=== PATIENT | female | born 2000 | race Caucasian/White ===

== ENCOUNTER 2019-11-03 12:57 | Emergency (ER) | payer OTHER ==
[~2019-11-03] VITALS: Ht 154.9 cm; Wt 46.7 kg
[2019-11-03] MEDS ORDERED: LEVO-T25 MCG PO (13:17)
== END 2019-11-03 16:36 | disposition home or self-care (01) ==
LOC: ED 12:57
DX: O20.0 Threatened abortion (principal); Z3A.01 Less than 8 weeks gestation of pregnancy; Z79.899 Other long term (current) drug therapy
CPT/HCPCS: 76801; 76817; 81001; 84702; 85025; 86900; 86901; 87210; 87491; 87591; 96360; 99284-25; J7030

== ENCOUNTER 2020-05-22 07:22 | Inpatient (IN) | payer OTHER ==
--- NOTE | ~2020-05-22 | OR ---
[facility] [address] [facility] [place], [place] [address] Draft DATE OF OPERATION: 05/22/2020 SURGEON: Heather Saenz DO PREOPERATIVE DIAGNOSES: 1. Intrauterine at 35 weeks and four days' gestation. 2. Severe intrauterine growth restriction. 3. Non-reassuring heart tracing. 4. Placental abruption. 5. Premature rupture of membranes. POSTOPERATIVE DIAGNOSES: 1. Intrauterine at 35 weeks and four days' gestation. 2. Severe intrauterine growth restriction. 3. Non-reassuring heart tracing. 4. Placental abruption. 5. Premature rupture of membranes. PROCEDURES PERFORMED: Primary low transverse delivery. ANESTHESIA: Spinal. PERISHABLE FRUIT INSPECTOR: Danica Andrews M.D. ESTIMATED BLOOD LOSS: 500 mL. COMPLICATIONS: None. FINDINGS: Viable male weighing 3 pounds 7 ounces, born in the LUCY position with no nuchal cord. Thick meconium. Placenta demonstrates 20% to 25% abruption. Apgars 7 and 9. INDICATIONS: Ms. To is a pleasant 20-year-old, G3, P0-1-1-1 female, who presented to Labor and Delivery after complaining of rupture of membranes and scant vaginal bleeding this PATIENT NAME: LLOYD TO OPERATIVE REPORT DATE OF : 99 REPORT #: [id number] PHYSICIAN: HEATHER SAENZ DO PCP: [facility] REPORT IS CONFIDENTIAL AND NOT TO BE RELEASED WITHOUT AUTHORIZATION [facility] [address] [place], [place] [address] Draft morning. was complicated by severe IUGR and single umbilical artery. The patient had previously undergone a course of steroids on 05/08 through 05/09/2020. Upon presentation, spontaneous rupture of membranes was confirmed and heart tracing demonstrated non-reassuring signs with variable late decelerations. The patient was only dilated to 1 cm and not in active labor. Decision was made to proceed with primary low transverse delivery. Risks, benefits, and alternatives were discussed in detail with the patient. The patient understands and wishes to proceed with the procedure. DESCRIPTION OF PROCEDURE: The patient was taken to the operating room, where a time-out was performed to confirm correct patient and correct procedure. Spinal anesthesia was adequately established. The patient was prepped and draped in the supine position with a bump under the right hip. Ewing catheter was inserted and vaginal and abdominal prep were performed. Ancef 2 g and azithromycin 500 mg were administered preoperatively and no heparin was indicated. After confirming adequate spinal anesthetic, a Pfannenstiel skin incision was made and carried down to the fascia. The fascia was nicked in the midline and fascial incision was extended bilaterally using Ortega scissors. The fascia was grasped with Soto's, elevated, and the underlying rectus muscles dissected off sharply. The rectus muscles were then divided in the midline bluntly. Peritoneum was entered bluntly and peritoneal incision was extended cephalad-caudad using blunt dissection. An Uziel self retractor was placed and the lower uterine segment identified. Hysterotomy was then performed using a surgical scalpel. Amnion was entered with particulate thick meconium noted. Hysterotomy was extended bilaterally using blunt dissection, and the 's head was gently elevated into the maternal abdomen and delivered. No nuchal cord was noted and the remainder of the delivered spontaneously. The was vigorous and cried at delivery and immediate cord clamping was performed. The handed to the waiting Pediatric team for further care. Cord gases were obtained and the placenta was manually expressed intact with a centrally inserted two-vessel cord. The uterus was cleared of any remaining products of conception or clot, and Pitocin was administered per protocol. Initially, uterine tone was poor and this quickly resolved with minimal bleeding. Hysterotomy was then repaired using 0-Vicryl in a running locked manner with a second imbricating suture of 0-Vicryl in a vertical imbricating manner. Small amount of oozing was noted at the midline, this was made hemostatic with two [id number] of 0-Vicryl. The pelvis was irrigated and found to be hemostatic. Uterus, tubes, and ovaries appeared normal. The Uziel self retractor was removed and ACell sheet was applied to the lower uterine segment after confirming hemostasis. Peritoneum was reapproximated using 2-0 Vicryl in a running nonlocked manner. The rectus muscles were examined and made hemostatic with judicious use of Bovie electrocautery. Rectus was plicated in the midline with three loose interrupted sutures of 0-Vicryl. ACell powder was applied to the rectus sheath and fascia was PATIENT NAME: LLOYD TO OPERATIVE REPORT DATE OF : 99 REPORT #: [id number] PHYSICIAN: HEATHER SAENZ DO PCP: [facility] REPORT IS CONFIDENTIAL AND NOT TO BE RELEASED WITHOUT AUTHORIZATION [facility] [address] [place], [place] [address] Draft reapproximated using 0-Vicryl in a running nonlocked manner. Subcu was examined and made hemostatic with judicious use of Bovie electrocautery. Subcu was loosely reapproximated using 3-0 Vicryl in three interrupted sutures. The skin was then reapproximated using 4-0 Vicryl in subcuticular stitch. Steri-Strips were applied to the Pfannenstiel incision and the uterus was Crede'd for scant blood. The patient was then taken to PACU in good and stable condition. Sponge, needle, and instrument count were correct x2 at the end of the procedure. Dr. Andrews was present and participated in all portions of the procedure. The was stable at the time of dictation and cord gases are pending. [facility]. Heather Saenz DO JDW/MODL /[id number] Copies: ~ PATIENT NAME: LLOYD TO OPERATIVE REPORT DATE OF : 99 REPORT #: [id number] PHYSICIAN: HEATHER SAENZ DO PCP: [facility] REPORT IS CONFIDENTIAL AND NOT TO BE RELEASED WITHOUT AUTHORIZATION
[~2020-05-22 07:22] MED LIST: LEVO-T25 MCG PO
--- NOTE | 2020-05-22 08:14 | PR ---
[facility] [address] [facility] [place], [place] [address] Signed Progress Notes IP Datetime Report Generated by CPN: 05/22/2020 08:14 PROGRESS NOTES: [id number] VITAL SIGNS: [id number] Vital Signs: Reviewed; Within Normal Limits EXAM: [id number] Dilatation: 1.5 Effacement: 50 Station: -3 Contractions: infrequent MEMBRANES: [id number] Comments: Amnisure positive FETUS A: [id number] FHR Baseline: 145 Variability: Moderate 6-25bpm Accelerations: None Decelerations: Late; Variable FHR Category: Category II Presentation: Vertex Comments on Fetus A: Non-reassuring FHT FETUS B: [id number] Signing Physician: Luz Ibarra DO Copies: ~ *Electronically Signed* 05/22/20813 LUZ IBARRA DO PATIENT NAME: LLOYD TO PROGRESS NOTE DATE OF : 99 PHYSICIAN: LUZ IBARRA DO RPT #: [id number] REPORT IS CONFIDENTIAL AND NOT TO BE RELEASED WITHOUT AUTHORIZATION
--- NOTE | 2020-05-22 10:02 | NUR ---
05/22/20 Dary Galindo 0936- PT ARRIVES TO [facility] ROOM #104. PT REPORTS NO PAIN OR NAUSEA. RESP EVEN AND UNLABORED. OXYGEN SAT HIGH 90'S TO 100% ON RA. HAVING DIFFICULTY OBTAINING BP WITH THE MONITOR. PT IS SHAKING. MANUAL BP TAKEN. 5512- PT'S SIGNIFICANT OTHER IS AT THE BEDSIDE TO UPDATE THE PT ABOUT THE BABY. THE PT APPEARS ANXIOUS AND IS STARTING TO HAVE LABORED BREATHING. PT CALMED AND HELPED WITH TAKING SLOW DEEP BREATHS. PT IS ABLE TO DO THIS AND BREATHING SLOWED.
--- NOTE | 2020-05-22 11:38 | NUR ---
COVID SWAB OBTAINED 1120 FOR RAPID SAMPLE, LAB CALLED FOR VERIFICATIONS ON TIME AT 1130 ,NO COMPLICATIONS
--- NOTE | 2020-05-23 08:27 | PR ---
[facility] [address] [place], [place] [address] Signed PP Progress Notes Datetime Report Generated by CPN: 05/23/2020 08:26 SUBJECTIVE: [id number] Pain: Within Normal Limits Nausea/Vomiting: Denies Flatus: No Bowel Movement: No Vital Signs: [id number] Vital Signs: Reviewed Notable Details: Elevated initially , error measure of 185/91 @ 2351. Normotensive this am. Cardiovascular: Normal Respiratory: Normal Abdomen/Uterus: Normal Lochia: Normal Breasts: Normal Extremities: Normal Incision: Normal Progress: Normal Exam Comments: Appears well Pumping with good milk production RRR CTAB Fundus firm just above pelvic brim Minimal dried strikethrough on dressing IMPRESSION/PLAN/PROCEDURES: [id number] Impression: Normal Progression Plan: Discharge Procedures: None Progress Notes: 20 yo POD#1 s/p PLTCS for PPROM, nonreassuring heart tones, abruption, severe FGR Baby transferred to [facility] in [place], strongly desires discharge today to be with baby Doing well post-op -pain well-controlled, VSS, Hgb 10.7 from 12.1 preop -quijano removed, s/p spontaneous void -positive flatus, tolerating regular diet *Electronically Signed* 05/23/20 0826 LUZ IBARRA DO PATIENT NAME: LLOYD TO PROGRESS NOTE DATE OF : 99 PHYSICIAN: LUZ IBARRA DO RPT #: [id number] REPORT IS CONFIDENTIAL AND NOT TO BE RELEASED WITHOUT AUTHORIZATION [facility] [address] [place], [place] [address] Signed DC to home, discussed strict precautions to present for care at ED in [place] Follow-up in 2 weeks, by phone if baby still inpatient in [place] Signing Physician: Luz Ibarra DO Copies: ~ *Electronically Signed* 05/23/20825 LUZ IBARRA DO PATIENT NAME: LLOYD TO PROGRESS NOTE DATE OF : 99 PHYSICIAN: LUZ IBARRA DO RPT #: [id number] REPORT IS CONFIDENTIAL AND NOT TO BE RELEASED WITHOUT AUTHORIZATION
== END 2020-05-23 11:25 | disposition home or self-care (01) | DRG 786 ==
LOC: FBCO 07:22 → FBC 08:09
PROVIDERS: ADMIT Obstetrics & Gynecology; ATTEND Obstetrics & Gynecology
PROC: 10D00Z1 Extraction of Products of Conception, Low, Open Approach (ICD-10-PCS; principal; 2020-05-22 08:18)
DX: O36.5930 Maternal care for other known or suspected poor fetal growth, third trimester, not applicable or unspecified (principal); O45.93 Premature separation of placenta, unspecified, third trimester; Z3A.35 35 weeks gestation of pregnancy; Z37.0 Single live birth; O76 Abnormality in fetal heart rate and rhythm complicating labor and delivery; O77.0 Labor and delivery complicated by meconium in amniotic fluid; O42.913 Preterm premature rupture of membranes, unspecified as to length of time between rupture and onset of labor, third trimester; Q27.0 Congenital absence and hypoplasia of umbilical artery; O99.284 Endocrine, nutritional and metabolic diseases complicating childbirth; E03.9 Hypothyroidism, unspecified; Z79.899 Other long term (current) drug therapy
CPT/HCPCS: 01961; 36415; 82803; 84112; 85027; C9803; J0456; J0690; J1885; J2250; J2274; J2405; J2590; J2704; J3010; J7060; J7121; U0003

== ENCOUNTER 2021-10-02 15:47 | Inpatient (IN) | payer OTHER ==
--- NOTE | 2021-10-02 17:45 | NUR ---
10/02/21 1745 Dary Ortiz 1734- PT ARRIVES TO [facility] ROOM #104 ALERT AND ORIENTED. PT REPORTS NO PAIN OR NAUSEA. RESP EVEN AND UNLABORED. OXYGEN SAT HIGH 90'S TO 100% ON RA. IV INFUSING LR WITH PITOCIN WNL. PT'S SIGNIFICANT OTHER AT THE BEDSIDE. 1739- DIFFICULTY OBTAINING BP PT'S IS SHAKING. PT PROVIDED WARM BLANKETS.
--- NOTE | 2021-10-05 10:22 | OR ---
[facility] [address] [place], [place] [address] Signed DATE OF OPERATION: 10/02/2021 SURGEON: Heather Saenz DO PREOPERATIVE DIAGNOSES: 1. Intrauterine at 37 weeks and 3 days gestation. 2. History of prior x2. 3. Spontaneous labor. POSTOPERATIVE DIAGNOSES: 1. Intrauterine at 37 weeks and 3 days gestation. 2. History of prior x2. 3. Spontaneous labor. 4. Uterine window. PROCEDURE: Performed repeat low transverse delivery. ANESTHESIA: Spinal. EMBALMER ASSISTANT: Reuben Han MD ([facility]) ESTIMATED BLOOD LOSS: 600 mL. COMPLICATIONS: None. FINDINGS: Viable female born in the MAHSA position with nuchal cord x1 and thick meconium. A 6 pounds 1 ounce with Apgars of 8 and 8. Normal tubes and ovaries. The uterus is notable for a large window at the lower uterine segment with the meconium-stained fluid easily visible through the window. Diameter of the windows approximately 5 x 3 cm. INDICATIONS: Ms. To is a pleasant 21-year-old G4, P0-2-1-2 with IUP at 37 weeks gestation who presented for routine OB visit today. She complained of contractions increasing in frequency and intensity today and painful contractions every 2 minutes. On exam, the Electronically Signed By: HEATHER SAENZ DO 10/05/21 1022 PATIENT NAME: LLOYD TO OPERATIVE REPORT DATE OF : 99 REPORT #: [id number] PHYSICIAN: HEATHER SAENZ DO [facility] REPORT IS CONFIDENTIAL AND NOT TO BE RELEASED WITHOUT AUTHORIZATION [facility] [address] [place], [place] [address] Signed patient was noted to be dilated to 4-5 cm / 80% effaced. Decision made to proceed with repeat low transverse delivery. Risks, benefits, and alternatives were discussed in detail with the patient. The patient understands and wished to proceed with the procedure. Consents were signed. TECHNIQUE: The patient was taken to the operating room where a time-out was performed to confirm correct patient and correct procdure. Spinal anesthesia was adequately established and the patient was prepped and draped in supine position. ICPs were on and running, and preoperative antibiotics, Ancef 2 g were given. A Ewing catheter was inserted. A Pfannenstiel skin incision was made, carried through the prior incision down to the fascia once adequate anesthesia was established. Fascia was nicked in the midline and bilateral fascial incision was extended bilaterally using the Ortega scissors. The fascia was grasped with Soto's, elevated, and the underlying rectus muscle dissected off bluntly sharply. The rectus muscles were divided in the midline. The peritoneum was entered bluntly and the lower uterine segment identified. An Uziel self retractor was placed. A large uterine window approximately 5 x 3 cm was noted in the lower uterine segment with meconium-stained fluid noted. Hysterotomy was then performed using surgical scalpel. Large amount of meconium-stained fluid was noted and the surgeon's hand was placed in the uterine cavity. The head elevated into the abdomen, delivered with the assistance of fundal pressure. Loose nuchal cord x1 was noted and reduced without difficulty. The was vigorous and cried immediately following delivery. The cord was doubly clamped and cut and the handed to the waiting pediatric team for further care. Cord blood was obtained for routine analysis. The placenta was manually expressed, intact with a centrally inserted three-vessel cord. The residual membranes were noted. These were gently teased from the decidua using ring forceps. The uterine cavity was cleared of any remaining products of conception or clot and a stay stitch of 0 Monocryl was placed in the right edge of the incision. The hysterotomy was then repaired using 0 Monocryl in a running locked manner and then a running imbricated suture of 2-0 Monocryl was also applied. Excellent hemostasis was appreciated. The Uziel self retractor was removed. Peritoneum was reapproximated using 2-0 Vicryl in a running nonlocked manner. Rectus was made hemostatic with judicious use of Bovie electrocautery and then plicated in the midline using 0 Vicryl. The subcu was noted to be very thin and the fascia was then closed using 0 Vicryl in a running nonlocked manner. Decision was made to skip reapproximated of the subcuticular space, and the patient's subq was <2 cm. The skin was then reapproximated using surgical adilson. The uterus Crede'd for scant amount of blood The patient was then taken to the PACU in good and stable condition following administration of tap block by anesthesia. Dr. Han was present and participated in Electronically Signed By: HEATHER SAENZ DO 10/05/21 1022 PATIENT NAME: LLOYD TO OPERATIVE REPORT DATE OF : 99 REPORT #: [id number] PHYSICIAN: HEATHER SAENZ DO PCP: [facility] REPORT IS CONFIDENTIAL AND NOT TO BE RELEASED WITHOUT AUTHORIZATION [address] [address] Signed all portions of the procedure. Heather Saenz DO JDAntonia/MODL /[id number] Copies: ~ Electronically Signed By: HEATHER SAENZ DO 10/05/21 1022 PATIENT NAME: BRETT TOSAMUEL TSAI OPERATIVE REPORT DATE OF : 99 REPORT #: [id number] PHYSICIAN: HEATHER SAENZ DO PCP: [facility] REPORT IS CONFIDENTIAL AND NOT TO BE RELEASED WITHOUT AUTHORIZATION
== END 2021-10-05 10:40 | disposition home or self-care (01) | DRG 788 ==
LOC: FBC 15:47
PROVIDERS: ADMIT Obstetrics & Gynecology; ATTEND Obstetrics & Gynecology
PROC: 10D00Z1 Extraction of Products of Conception, Low, Open Approach (ICD-10-PCS; principal; 2021-10-02 16:31)
DX: O34.211 Maternal care for low transverse scar from previous cesarean delivery (principal); Z3A.37 37 weeks gestation of pregnancy; Z37.0 Single live birth; Z20.822 Contact with and (suspected) exposure to COVID-19; O77.0 Labor and delivery complicated by meconium in amniotic fluid; O69.81X0 Labor and delivery complicated by cord around neck, without compression, not applicable or unspecified; O99.02 Anemia complicating childbirth; D64.9 Anemia, unspecified; Z79.899 Other long term (current) drug therapy
CPT/HCPCS: 36415; 76942; 85027; 85060; 86850; 86900; 86901; 87502; A9270; C9803; J0690; J1100; J1650; J1885; J2001; J2370; J2405; J2550; J2590; J2795; J7121; U0003